=== PATIENT | female | born 1925 | race Caucasian/White ===

== ENCOUNTER 2017-07-17 21:35 | Inpatient (IN) | payer OTHER ==
[~2017-07-17] VITALS: Ht 165.1 cm; Wt 62.1 kg
[2017-07-17] MEDS ORDERED: ONDANSETRON HCL 4 MG/2 ML VIAL IV PRN (22:45)
[2017-07-17] MEDS ORDERED: HYDROcodone-ACET 5/325MG TAB PO PRN (22:45)
[2017-07-17] MEDS ORDERED: LORazepam 0.5 MG TAB PO PRN (22:45)
[2017-07-17] MEDS ORDERED: MORPHINE SULFATE 4 MG/ML SYR/VIAL IV PRN (22:45)
[2017-07-17] MEDS ORDERED: NITROGLYCERIN 0.4 MG SL TAB SL PRN (22:45)
[2017-07-17] MEDS ORDERED: ACETAMINOPHEN 325 MG TAB PO PRN (22:45)
[2017-07-17] MEDS ORDERED: TEMAZEPAM 15 MG CAP PO PRN (22:45)
[2017-07-17] MEDS ORDERED: LORazepam 0.5 MG TAB PO ONE (22:45)
[2017-07-17 22:46] VITALS: BP 128/64
[2017-07-17 23:22] LABS: Hematocrit 29.5 % (36.0-46.0); Hemoglobin 9.7 g/dL (12.2-16.2); Mean Corpuscular Hemoglobin 32.5 pg (28.0-32.0); Mean Corpuscular Volume 98.5 fL (80.0-100.0); Platelet Count (auto) 114 10^3/uL (140-450); Red Blood Cells 2.99 10^6/uL (4.0-5.20); Red Cell Distribution Width 14.4 % (11.8-14.3); White Blood Cell 3.1 10^3/uL (4.4-10.8)
[2017-07-17 23:26] LABS: Band Neutrophils % (manual) 0
[2017-07-17 23:27] LABS: Basophils % (manual) 0 (0.0-2.0); Blast Cells 0; Metamyelocytes % 0; Myelocytes % 0; Promyelocytes % 0; Reactive Lymphocytes 0
[2017-07-17 23:40] LABS: Albumin 2.7 g/dL (3.4-5.0); Calcium 8.2 mg/dL (8.5-10.1); Potassium 4.1 mmol/L (3.5-5.1)
[2017-07-17 23:42] LABS: BUN/Creatinine Ratio 28.2
[2017-07-17 23:45] LABS: Bilirubin, Total 0.5 mg/dL (0.2-1.0); Total Protein 5.4 g/dL (6.4-8.2)
[2017-07-18 00:27] LABS: Eosinophils % (manual) 1 (0-7); Lymphocytes % (manual) 30 (10.0-50.0); Monocytes % (manual) 18 (0-12)
[2017-07-18] MEDS ORDERED: BISA-4 PO (02:30)
[2017-07-18] MEDS ORDERED: AMLO5TAB2 PO (02:30)
[2017-07-18] MEDS ORDERED: POLY33504 PO (02:30)
[2017-07-18] MEDS ORDERED: DIPH2.5T73 PO (02:30)
[2017-07-18] MEDS ORDERED: CITA10TA70 PO (02:30)
[2017-07-18] MEDS ORDERED: LISI-646 PO (02:30)
[2017-07-18] MEDS ORDERED: GUAI1LIQ7 PO (02:30)
[2017-07-18] MEDS ORDERED: CIPR-173 PO (02:30)
[2017-07-18] MEDS ORDERED: TRAM50TA2 PO (02:30)
[2017-07-18 08:28] VITALS: BP 132/68
[2017-07-18] MEDS: ENOXAPARIN SOD 40 MG/0.4 ML SYRINGE SC SCH (10:16)
[2017-07-18] MEDS: LISINOPRIL 20 MG TAB PO SCH ×2 (10:17→21:44)
[2017-07-18] MEDS: amLODIPine BESYLATE 5 MG TAB PO SCH (10:18)
[2017-07-18] MEDS: CITALOPRAM HYDROBR 20 MG TAB PO SCH (10:18)
[2017-07-18] MEDS: FAMOTIDINE 20 MG TAB PO SCH ×2 (10:18→21:43)
[2017-07-18] MEDS: HYDROcodone-ACET 10/325MG TAB PO PRN ×3 (10:20→18:00)
[2017-07-18] MEDS ORDERED: SODIUM CHLORIDE 0.9% 1,000 ML IV ONE (12:30)
[2017-07-18 12:54] VITALS: BP 121/55
[2017-07-18] MEDS: MORPHINE SULFATE 4 MG/ML SYR/VIAL IV PRN ×2 (15:48→21:44)
[2017-07-18 17:48] VITALS: BP 124/72
[2017-07-18 22:00] VITALS: BP 115/58
[2017-07-19] MEDS: HYDROcodone-ACET 10/325MG TAB PO PRN ×3 (01:52→13:48)
[2017-07-19 05:00] VITALS: BP 103/51
[2017-07-19] MEDS ORDERED: PNEUMOCOCCAL VACC POLYS 25 MCG/0.5 ML VIAL IM ONE (07:15)
[2017-07-19 08:00] VITALS: BP 146/66
[2017-07-19] MEDS: ENOXAPARIN SOD 40 MG/0.4 ML SYRINGE SC SCH (10:00)
[2017-07-19] MEDS: LISINOPRIL 20 MG TAB PO SCH (11:10)
[2017-07-19] MEDS: FAMOTIDINE 20 MG TAB PO SCH (11:11)
[2017-07-19] MEDS: amLODIPine BESYLATE 5 MG TAB PO SCH (11:11)
[2017-07-19] MEDS: CITALOPRAM HYDROBR 20 MG TAB PO SCH (11:11)
[2017-07-19 12:00] VITALS: BP 95/48
== END 2017-07-19 14:30 | disposition home or self-care (01) | DRG 885 ==
LOC: TELE-EAST 21:35 → TELE-WESTW 07-19 01:50
PROVIDERS: ADMIT Internal Medicine; ATTEND Family Medicine
DX: F23 Brief psychotic disorder (principal); G93.41 Metabolic encephalopathy; E86.0 Dehydration; F03.90 Unspecified dementia, unspecified severity, without behavioral disturbance, psychotic disturbance, mood disturbance, and anxiety; I10 Essential (primary) hypertension; Z83.3 Family history of diabetes mellitus; Z23 Encounter for immunization
CPT/HCPCS: 36415; 72220; 80053; 85007; 85027; 87081